=== PATIENT | male | born 1980 | race Caucasian/White ===

== ENCOUNTER 2016-03-02 16:35 | Emergency (ER) | payer BC, OTHER ==
[2016-03-02 19:09] VITALS: BP 130/93
--- NOTE | 2016-03-02 19:20 | UC ---
Throat Pain/Nasal Eduin HPI - HPI Summary HPI Summary: Sore throat and stomach pain began 02/15---had some left over amoxicillin and took that but symptoms have returned - History of Current Complaint Chief Complaint: UCRespiratory Stated Complaint: SORE THROAT, AND DIARRHEA Time Seen by Provider: 03/02/16 19:17 Hx Obtained From: Patient Onset/Duration: Gradual Onset, Lasting Days, Still Present Severity: Moderate Cough: None Associated Signs & Symptoms: Positive: Negative - Allergies/Home Medications Allergies/Adverse Reactions: Allergies Allergy/AdvReac Type Severity Reaction Status Date / Time No Known Allergies Allergy Verified 03/02/16 19:08 Home Medications: Home Medications Multiple Vitamins W/ Minerals [Vitamins & Minerals] 1 tab PO DAILY 03/02/16 [ History Confirmed 03/02/16] PMH/Surg Hx/FS Hx/Imm Hx Previously Healthy: Yes Endocrine History Of: Denies: Diabetes, Thyroid Disease Cardiovascular History Of: Denies: Hypertension, Pacemaker/ICD, Congestive Heart Failure Respiratory History Of: Denies: Asthma, Bronchitis, Pulmonary Embolism GI/ History Of: Denies: Ulcer, Kidney Stones Neurological History Of: Denies: Seizures, Migraine Psychological History Of: Denies: Anxiety, Depression - Surgical History Surgical History: Yes Surgery Procedure, Year, and Place: tendons and ligaments repaired in thumb, RIGHT TIB/FIB FX REPAIR WITH TITANIUM TONIA - Family History Family History: no cardiovascular issues in family lineage - Social History Occupation: Employed Full-time Lives: With Family Alcohol Use: Occasionally Substance Use Type: None Smoking Status (MU): Never Smoked Tobacco - Immunization History Most Recent Tetanus Shot: cant remember,within last ten years Review of Systems Constitutional: Fatigue Skin: Negative Eyes: Negative ENT: Sore Throat Respiratory: Negative Cardiovascular: Negative Gastrointestinal: Negative Genitourinary: Negative Motor: Negative Neurovascular: Negative Musculoskeletal: Negative Neurological: Negative Psychological: Negative All Other Systems Reviewed And Are Negative: Yes Physical Exam Triage Information Reviewed: Yes Appearance: Well-Nourished, Ill-Appearing - mild, Pain Distress - mild Vital Signs: Initial Vital Signs Temp 98.4 F 03/02/16 19:04 Pulse 100 03/02/16 19:04 Resp 16 03/02/16 19:04 BP 130/93 03/02/16 19:04 Pulse Ox 98 03/02/16 19:04 Vital Signs Reviewed: Yes Eye Exam: Normal Eyes: Positive: Conjunctiva Clear ENT Exam: Normal ENT: Positive: Hearing grossly normal, Pharyngeal erythema, TMs normal, Tonsillar swelling. Negative: Nasal congestion, Nasal drainage, Tonsillar exudate, Trismus, Muffled/hoarse voice Dental Exam: Normal Neck exam: Normal Neck: Positive: Supple, Nontender, Enlarged Nodes @ - cervial lymph -positive Respiratory Exam: Normal Respiratory: Positive: Chest non-tender, Lungs clear, Normal breath sounds, No respiratory distress, No accessory muscle use Cardiovascular Exam: Normal Cardiovascular: Positive: RRR, No Murmur, Pulses Normal, Brisk Capillary Refill Abdominal Exam: Normal Abdomen Description: Positive: Nontender, No Organomegaly, Soft Bowel Sounds: Positive: Present Musculoskeletal Exam: Normal Musculoskeletal: Positive: Strength Intact, ROM Intact, No Edema Neurological Exam: Normal Neurological: Positive: Alert Psychological Exam: Normal Skin Exam: Normal Diagnostics - Laboratory ABG Interpretation: RST(+) Throat Pain/Nasal Course/Dx - Course Course Of Treatment: Amoxicillin, prednisone, increase fluids follow with PCP re -check PRN - Differential Dx/Diagnosis Differential Diagnosis/HQI/PQRI: Influenza, Otitis Media, Peritonsillar Abscess , Pharyngitis, URI Provider Diagnoses: Strep Pharyngitis Discharge - Discharge Plan Condition: Stable Disposition: HOME Prescriptions: Amoxicillin CAP* 500 mg PO Q12H #20 cap predniSONE TAB* [Deltasone TAB*] 50 mg PO DAILY #2 tab Patient Education Materials: Strep Throat (ED) Referrals: [facility] [place] [facility] [Outside] - If Needed No Primary Care Phys,NOPCP [Primary Care Provider] -
[2016-03-02] MEDS ORDERED: predniSONE TAB* 20 MG PO ONE (19:24)
== END 2016-03-02 19:49 | disposition home or self-care (01) ==
LOC: UCEAST 16:35
DX: J02.0 Streptococcal pharyngitis (principal)
CPT/HCPCS: 87651; 99212; G0463; J7512